=== PATIENT | male | born 1975 | race Two or more races ===

== ENCOUNTER 2020-12-26 11:06 | Emergency (ER) | payer SELFPAY ==
--- NOTE | 2020-12-26 10:27 | EDM.PDOC ---
ED HPI GENERAL MEDICAL PROBLEM - General Stated Complaint: IN BY AMBULANCE Time Seen by Provider: 12/26/20 10:45 Source of Information: Reports: Patient History Limitations: Reports: No Limitations - History of Present Illness INITIAL COMMENTS - FREE TEXT/NARRATIVE: This 45 yo male patient was brought to the ED by [facility] from the retirement due to chest pain that started today at 0945. The patient reports his pain is throughout his anterior chest, radiates to his right posterior shoulder and to his left anterior shoulder. The patient was given aspirin and Nitro x1 while in the retirement. The patient has a history of hypertension and asthma (no medications for "quite a while"). The patient reports his pain is down to a 4/10 at this time. 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 ED EXAM, GENERAL - Physical Exam Exam: See Below Exam Limited By: No Limitations General Appearance: Alert, WD/WN, Mild Distress, Obese Eye Exam: Bilateral Eye: EOMI, Normal Inspection, PERRL Ears: Normal External Exam, Normal Canal, Hearing Grossly Normal, Normal TMs Nose: Normal Inspection, Normal Mucosa, No Blood Throat/Mouth: Normal Inspection, Normal Lips, Normal Teeth, Normal Gums, Normal Oropharynx, Normal Voice, No Airway Compromise Head: Atraumatic, Normocephalic Neck: Normal Inspection, Supple, Non-Tender, Full Range of Motion Respiratory/Chest: No Respiratory Distress, Lungs Clear, Normal Breath Sounds, No Accessory Muscle Use, Chest Non-Tender Cardiovascular: Normal Peripheral Pulses, Regular Rate, Rhythm, No Edema, No Gallop, No JVD, No Murmur, No Rub GI/Abdominal: Normal Bowel Sounds, Soft, Non-Tender, No Organomegaly, No Distention, No Abnormal Bruit, No Mass (Male) Exam: Deferred Rectal (Males) Exam: Deferred Back Exam: Normal Inspection, Full Range of Motion, NT Extremities: Normal Inspection, Normal Range of Motion, Non-Tender, Normal Capillary Refill, No Pedal Edema Neurological: Alert, Oriented, CN II-XII Intact, Normal Cognition, Normal Gait, Normal Reflexes, No Motor/Sensory Deficits Psychiatric: Normal Affect, Normal Mood Skin Exam: Warm, Dry, Intact, Normal Color, No Rash Lymphatic: No Adenopathy #1 Interpretation EKG Date: 12/26/20 Time: 10:20 Rhythm: NSR Rate (Beats/Min): 85 [place]: Normal P-Wave: Present QRS: Normal ST-T: Normal QT: Normal Comparison: NA - No Prior EKG Course - Orders/Labs/Meds Orders: Active Orders 24 hr Category Date Time Status EKG Documentation Completion [RC] STAT Care 12/26/20 10:15 Active Chest 1V Frontal [CR] Urgent Exams 12/26/20 10:28 Ordered ACETAMINOPHEN [CHEM] Stat Lab 12/26/20 10:15 Ordered CBC WITH AUTO DIFF [HEME] Stat Lab 12/26/20 10:15 Ordered COMPREHENSIVE METABOLIC PN,CMP [CHEM] Stat Lab 12/26/20 10:15 Ordered COVID-19/FLU A+B [MOLEC] Urgent Lab 12/26/20 10:52 Ordered D-DIMER QUANTITATIVE [COAG] Stat Lab 12/26/20 10:15 Ordered DRUG SCREEN URINE BIORAD [URCHEM] Stat Lab 12/26/20 10:15 Ordered ETHANOL BLOOD MEDICAL [CHEM] Stat Lab 12/26/20 10:15 Ordered SALICYLATE [CHEM] Stat Lab 12/26/20 10:15 Ordered TROPONIN I [CHEM] Stat Lab 12/26/20 10:15 Ordered UA RFX KIANA AND CULT IF INDIC [URIN] Urgent Lab 12/26/20 10:15 Ordered Departure - Departure Time of Disposition: 11:18 Disposition: DC/Tfer to Acute Hospital 02 Reason for Transfer *Q: Other Condition: Serious Clinical Impression: Non-STEMI (non-ST elevated myocardial infarction) Chest pain Qualifiers: Chest pain type: unspecified Qualified Code(s): R07.9 - Chest pain, unspecified Forms: Interfacility Transfer EMTALA Care Plan Goals: Discussed the patient's history, examination, lab, EKG and x-ray results with Dr. Barakat. Dr. Barakat accepted the patient for continued evaluation and management as an inpatient at [facility] in [place]. The patient will be transported by [facility]. - My Orders Last 24 Hours: My Active Orders 12/26/20 10:15 EKG Documentation Completion [RC] STAT ACETAMINOPHEN [CHEM] Stat CBC WITH AUTO DIFF [HEME] Stat COMPREHENSIVE METABOLIC PN,CMP [CHEM] Stat D-DIMER QUANTITATIVE [COAG] Stat DRUG SCREEN URINE BIORAD [URCHEM] Stat ETHANOL BLOOD MEDICAL [CHEM] Stat SALICYLATE [CHEM] Stat TROPONIN I [CHEM] Stat UA RFX KIANA AND CULT IF INDIC [URIN] Urgent 12/26/20 10:28 Chest 1V Frontal [CR] Urgent 12/26/20 10:52 COVID-19/FLU A+B [MOLEC] Urgent - Assessment/Plan Last 24 Hours: My Active Orders 12/26/20 10:15 EKG Documentation Completion [RC] STAT ACETAMINOPHEN [CHEM] Stat CBC WITH AUTO DIFF [HEME] Stat COMPREHENSIVE METABOLIC PN,CMP [CHEM] Stat D-DIMER QUANTITATIVE [COAG] Stat DRUG SCREEN URINE BIORAD [URCHEM] Stat ETHANOL BLOOD MEDICAL [CHEM] Stat SALICYLATE [CHEM] Stat TROPONIN I [CHEM] Stat UA RFX KIANA AND CULT IF INDIC [URIN] Urgent 12/26/20 10:28 Chest 1V Frontal [CR] Urgent 12/26/20 10:52 COVID-19/FLU A+B [MOLEC] Urgent
[2020-12-26 10:54] LABS: ANION GAP 10.2 mEq/L (7-13); CHLORIDE,CL 104 mmol/L (98-107); SODIUM,NA 141 mmol/L (136-145)
[2020-12-26 10:55] LABS: ACETAMINOPHEN 0 ug/mL (10-30 (Therapeutic))
[~2020-12-26 11:06] MED LIST: Heparin Sodium 5,000 Units/ML Vial IVPUSH ONE; Heparin Sodium/0.45% NaCl 25,000 UNITS/500 ML BAG IV ONE; Morphine 2 MG/ML SYRINGE IVPUSH ONE
--- NOTE | 2020-12-26 11:11 | CR ---
EXAMINATION: Chest 1V Frontal SEX: Male AGE: 45 years CLINICAL HISTORY: 45-year-old male emergency department with chest pain. No previous CXR immediately available. Interpretation: Negative. 1. Normal cardiac silhouette (size and configuration). 2. No pulmonary vascular congestion, cephalization of flow, alveolar edema or dependent pleural effusion. 3. No lung mass, hilar lymphadenopathy or focal lobar infiltrate/atelectasis. 4. No peripheral "groundglass" interstitial densities. 5. No pneumothorax or pneumomediastinum. Midline tracheal airway unremarkable.
[2020-12-26 11:36] LABS: CORONAVIRUS COVID-19 NAA NEGATIVE (NEGATIVE)
== END 2020-12-26 12:03 ==
LOC: DL.ED 11:06
DX: I21.4 Non-ST elevation (NSTEMI) myocardial infarction (principal); Z79.899 Other long term (current) drug therapy
CPT/HCPCS: 0240U; 36415; 71045; 80053; 80143; 80179; 80307; 84484; 85025; 85379; 93005; 93010; 96365; 96375; 99285; 99285-25; J1644; J2270

== ENCOUNTER 2020-12-27 22:55 | Emergency (ER) | payer SELFPAY ==
[2020-12-28] MEDS ORDERED: Nitroglycerin 0.4 MG Tab.SL SL ONE
--- NOTE | 2020-12-28 00:09 | EDM.PDOC ---
ED HPI GENERAL MEDICAL PROBLEM - General Chief Complaint: Chest Pain Time Seen by Provider: 12/27/20 23:20 Source of Information: Reports: Patient, EMS History Limitations: Reports: No Limitations - History of Present Illness INITIAL COMMENTS - FREE TEXT/NARRATIVE: ED via [facility] with c/o chest pain, Patint BP elevated on readmission to [facility]. Reported transferred to [facility] yesterday with NSTMI, Patient stated angiogram showed some heart attack , not enough for any stent. No reports from [facility] available. BP meds increased but patient does not know what medication changes were. Just returned back to [facility] around 7 rates pain 4/10 points pain epigastric, mid chest radiating across shoulder to back of neck - Related Data Allergies Allergy/AdvReac Type Severity Reaction Status Date / Time No Known Allergies Allergy Verified 12/27/20 23:04 Home Meds: Home Meds Metoprolol Succinate [Toprol Xl] 75 mg PO BEDTIME 12/26/20 [History] hydroCHLOROthiazide [Hydrochlorothiazide] 25 mg PO DAILY 12/26/20 [History] atorvaSTATin [Lipitor] 40 mg PO BEDTIME 12/27/20 [History] Past Medical History Cardiovascular History: Reports: High Cholesterol, Hypertension, [place] Social & Family History - Family History Family Medical History: No Pertinent Family History - Tobacco Use Tobacco Use Status *Q: Former Tobacco User Used Tobacco, but Quit: Yes Month/Year Tobacco Last Used: 2020 - Caffeine Use Caffeine Use: Reports: None - Recreational Drug Use Recreational Drug Use: Yes Recreational Drug Type: Reports: Methamphetamine ED ROS GENERAL - Review of Systems Review Of Systems: Comprehensive ROS is negative, except as noted in HPI. ED EXAM, GENERAL - Physical Exam Exam: See Below Exam Limited By: No Limitations General Appearance: Alert, No Apparent Distress Eye Exam: Bilateral Eye: EOMI Ears: Normal External Exam Nose: Normal Inspection Throat/Mouth: Normal Inspection Head: Atraumatic, Normocephalic Neck: Normal Inspection Respiratory/Chest: No Respiratory Distress, Lungs Clear, Normal Breath Sounds Cardiovascular: Normal Peripheral Pulses, Regular Rate, Rhythm GI/Abdominal: Normal Bowel Sounds Back Exam: Full Range of Motion Extremities: Normal Inspection Neurological: Alert, Oriented Skin Exam: Warm, Dry, Intact #1 Interpretation EKG Date: 12/27/20 Time: 22:58 Rhythm: NSR Rate (Beats/Min): 84 [place]: Normal P-Wave: Present QRS: Normal ST-T: Normal QT: Normal Comparison: No Change EKG Interpretation Comments: Sinus, rare PVC Course - Vital Signs Last Recorded V/S: Last Vital Signs Temp 98.6 F 12/27/20 23:11 Pulse 90 12/27/20 23:11 Resp 17 12/27/20 23:11 BP 130/67 12/28/20 00:09 Pulse Ox 95 12/27/20 23:11 - Orders/Labs/Meds Labs: Laboratory Tests 12/27/20 12/27/20 Range/Units 23:45 23:45 WBC 9.3 (5.0-10.0) 10^3/uL RBC 5.25 (4.6-6.2) 10^6/uL Hgb 14.8 (14.0-18.0) g/dL Hct 43.3 (40.0-54.0) % MCV 82.5 (80-100) fL MCH 28.2 (27.0-34.0) pg MCHC 34.2 (33.0-35.0) g/dL Plt Count 300 (150-450) 10^3/uL Neut % (Auto) 63.9 (42.2-75.2) % Lymph % (Auto) 21.7 (20.5-50.1) % [place] % (Auto) 10.9 H (2-8) % Eos % (Auto) 3.0 (1.0-3.0) % Baso % (Auto) 0.5 (0.0-1.0) % Sodium 140 (136-145) mmol/L Potassium 3.8 (3.5-5.1) mmol/L Chloride 104 (98-107) mmol/L Carbon Dioxide 29 (21-32) mmol/L Anion Gap 10.8 (7-13) mEq/L BUN 13 (7-18) mg/dL Creatinine 1.02 (0.70-1.30) mg/dL Est Cr Clr Drug Dosing 98.43 mL/min Estimated GFR (MDRD) > 60 BUN/Creatinine Ratio 12.7 (No establ ref range) Glucose 196 H (70-99) mg/dL Calcium 8.4 L (8.5-10.1) mg/dL Total Bilirubin 0.2 (0.2-1.0) mg/dL AST 16 (15-37) U/L ALT 45 (16-63) U/L Alkaline Phosphatase 108 (46-116) U/L Troponin I 0.592 H* (0.000-0.056) ng/mL Total Protein 7.0 (6.4-8.2) g/dL Albumin 3.1 L (3.4-5.0) g/dL Globulin 3.9 Albumin/Globulin Ratio 0.79 Meds: Medications Discontinued Medications Generic Name Dose Route Start Last Admin Trade Name Migdalia PRN Reason Stop Dose Admin Nitroglycerin 0.4 mg 12/28/20 00:00 12/28/20 00:09 Nitroglycerin 0.4 Mg Tab.Sl SL 12/28/20 00:01 0.4 mg ONETIME ONE Administration - Re-Assessments/Exams Free Text/Narrative Re-Assessment/Exam: Patient in no distress, offers little information, reports pain improved but continues to rate at 4. . Clarification of results of angio. No significant COAD. EF 65%. Discharge medications received during TC William Lopez. BP improved from presentation. Monitor stable. TC dr Stephensno, Does not felel patient requiring further observation at present. Definitive cardiac study done, No remarkable findings from report. [facility] to [facility] with [facility]al officers. Departure - Departure Time of Disposition: 00:28 Disposition: DC/Tfer to Court of Law En 21 Reason for Transfer *Q: Other Condition: Good Clinical Impression: Nonspecific chest pain Hypertension Qualifiers: Hypertension type: essential hypertension Qualified Code(s): I10 - Essential (primary) hypertension Instructions: Hypertension, Adult, Nonspecific Chest Pain, Adult Referrals: PCP,None [Primary Care Provider] - Forms: ED Department Discharge Additional Instructions: Medications per William discharge instructions Lipitor 40mg daily Aspirin 81mg daily Clonidine 0.1mg twice daily Norvasc 10mg daily Metoprolol 25mg daily clinic recheck next week Verbal report angiogram No significant CAD, EF 65% Sepsis Event Note (ED) - Evaluation Sepsis Screening Result: No Definite Risk - Focused Exam Vital Signs: Vital Signs Temp Pulse Resp BP BP Pulse Ox 12/28/20 00:09 130/67 12/27/20 23:11 98.6 F 90 17 153/78 H 95
[2020-12-28 00:12] LABS: ANION GAP 10.8 mEq/L (7-13); CHLORIDE,CL 104 mmol/L (98-107); SODIUM,NA 140 mmol/L (136-145)
--- NOTE | 2020-12-28 00:20 | CR ---
PROCEDURE INFORMATION: Exam: XR Chest Exam date and time: 12/27/2020 11:48 PM Age: 45 years old Clinical indication: Pain; Left-sided; Additional info: Chest pain TECHNIQUE: Imaging protocol: XR of the chest. Views: 1 view. COMPARISON: CR Chest 1V Frontal 12/26/2020 11:03 AM FINDINGS: Lungs: Unremarkable. No consolidation. Pleural spaces: Unremarkable. No pleural effusion. No pneumothorax. Heart/Mediastinum: Unremarkable. No cardiomegaly. Bones/joints: Unremarkable. IMPRESSION: No acute findings.
== END 2020-12-28 00:41 ==
LOC: DL.ED 22:55
DX: R07.9 Chest pain, unspecified (principal); I10 Essential (primary) hypertension; E78.00 Pure hypercholesterolemia, unspecified; I25.2 Old myocardial infarction; Z79.899 Other long term (current) drug therapy; Z95.5 Presence of coronary angioplasty implant and graft
CPT/HCPCS: 36415; 71045; 80053; 84484; 85025; 93005; 93010; 99284; 99285-25; A9270-GY

== ENCOUNTER 2021-01-15 22:55 | Emergency (ER) | payer SELFPAY ==
--- NOTE | 2021-01-15 23:33 | EDM.PDOC ---
ED HPI GENERAL MEDICAL PROBLEM - General Chief Complaint: Chest Pain Stated Complaint: MED CLEAR Time Seen by Provider: 01/15/21 23:30 Source of Information: Reports: Patient, Provider (Ivelisse Lieberman NP), RN, RN Notes Reviewed History Limitations: Reports: No Limitations - History of Present Illness INITIAL COMMENTS - FREE TEXT/NARRATIVE: Augustine is a 45 y/o male with a history of NSTEMI and HTN who presents to the ED via [facility], as he is currently incarcerated, with complaints of chest pain that is intractable to Nitroglycerin. The patient reports the chest pain woke him from sleep at 2000 this evening. He characterizes the pain as a sharp stab to his midsternal region that radiates down his left arm and into his left neck. He has taken three doses of Nitroglycerin which did reduce the pain, but did not completely alleviate it. Additionally, he reports general malaise, blurry vision, headache, transient cough, transient shortness of breath, and mild nausea. He denies sinus congestion, sore throat, palpitations, vomiting, abdominal pain, dysuria, hematuria, melena, or hematochezia. The patient reports he has been taking his HTN and HLDA medications as prescribed. He reports he used to be a pack-a-day cigarette smoker but has not smoked frequently since he was incarcerated nine months ago. He denies alcohol or recreational drug use. The patient was evaluated at this facility on 12/26/20 for similar symptoms, EKG normal and troponin elevated at 0.09. He was sent to [facility] in [place] where no prominent CAD was identified and EF was 65% via ECHO, no stenting performed. Chest Pain Score (Numeric/FACES): 4 - Related Data Allergies Allergy/AdvReac Type Severity Reaction Status Date / Time No Known Allergies Allergy Verified 12/27/20 23:04 Home Meds: Home Meds Metoprolol Succinate [Toprol Xl] 75 mg PO BEDTIME 12/26/20 [History] hydroCHLOROthiazide [Hydrochlorothiazide] 25 mg PO DAILY 12/26/20 [History] atorvaSTATin [Lipitor] 40 mg PO BEDTIME 12/27/20 [History] Nitroglycerin 1 tab PO ASDIRECTED PRN 01/15/21 [History] Past Medical History Cardiovascular History: Reports: High Cholesterol, Hypertension Social & Family History - Family History Family Medical History: No Pertinent Family History - Caffeine Use Caffeine Use: Reports: None ED ROS GENERAL - Review of Systems Review Of Systems: Comprehensive ROS is negative, except as noted in HPI. ED EXAM, GENERAL - Physical Exam Exam: See Below Exam Limited By: No Limitations General Appearance: Alert, No Apparent Distress Eye Exam: Bilateral Eye: EOMI, Normal Inspection, PERRL (3mm) Ears: Normal External Exam, Normal Canal, Hearing Grossly Normal Ear Exam: Bilateral Ear: Auricle Normal, Canal Normal Nose: Normal Inspection, Normal Mucosa Throat/Mouth: Normal Inspection, Normal Oropharynx, Normal Voice, No Airway Compromise Head: Normocephalic Neck: Normal Inspection, Supple, Non-Tender, Full Range of Motion. No: Lymphadenopathy (L), Lymphadenopathy (R) Respiratory/Chest: No Respiratory Distress, Lungs Clear, Normal Breath Sounds, No Accessory Muscle Use. No: Chest Non-Tender, Crackles, Rales, Rhonchi, Wheezing, Stridor Cardiovascular: Normal Peripheral Pulses, Regular Rate, Rhythm, No Gallop, No JVD, No Murmur, No Rub. No: No Edema Peripheral Pulses: 2+: Radial (L), Radial (R) GI/Abdominal: Normal Bowel Sounds, Soft, Non-Tender, No Distention, No Abnormal Bruit, No Mass, Pelvis Stable (Male) Exam: Deferred Rectal (Males) Exam: Deferred Back Exam: Normal Inspection, Full Range of Motion Extremities: Normal Range of Motion, Non-Tender, Normal Capillary Refill, Pedal Edema (+1 pitting, bilaterally) Neurological: Alert, Oriented, CN II-XII Intact, Normal Cognition, Normal Gait, No Motor/Sensory Deficits Psychiatric: Normal Affect, Normal Mood Skin Exam: Warm, Dry, Intact, Normal Color, No Rash. No: Ecchymosis, Erythema, Jaundice, Mottled, Pallor, Petechiae #1 Interpretation EKG Date: 01/15/21 Time: 23:18 Rhythm: NSR Rate (Beats/Min): 67 [place]: Normal P-Wave: Present QRS: Normal ST-T: Normal QT: Normal IN/PQ Interval: 0.194 Comparison: No Change EKG Interpretation Comments: NSR; q-wave in III; No evidence of acute myocardial ischemia Course - Vital Signs Last Recorded V/S: Last Vital Signs Temp 97.4 F 01/15/21 23:18 Pulse 71 01/15/21 23:18 Resp 16 01/15/21 23:18 BP 140/89 01/15/21 23:18 Pulse Ox 97 01/15/21 23:18 - Orders/Labs/Meds Labs: Laboratory Tests 01/15/21 01/15/21 01/15/21 Range/Units 23:21 23:21 23:21 WBC 10.3 H (5.0-10.0) 10^3/uL RBC 5.27 (4.6-6.2) 10^6/uL Hgb 15.2 (14.0-18.0) g/dL Hct 43.5 (40.0-54.0) % MCV 82.5 (80-100) fL MCH 28.8 (27.0-34.0) pg MCHC 34.9 (33.0-35.0) g/dL Plt Count 343 (150-450) 10^3/uL Neut % (Auto) 64.2 (42.2-75.2) % Lymph % (Auto) 22.4 (20.5-50.1) % [place] % (Auto) 10.0 H (2-8) % Eos % (Auto) 2.6 (1.0-3.0) % Baso % (Auto) 0.8 (0.0-1.0) % Sodium 140 (136-145) mmol/L Potassium 3.8 (3.5-5.1) mmol/L Chloride 104 (98-107) mmol/L Carbon Dioxide 31 (21-32) mmol/L Anion Gap 8.8 (7-13) mEq/L BUN 12 (7-18) mg/dL Creatinine 1.08 (0.70-1.30) mg/dL Est Cr Clr Drug Dosing 90.12 mL/min Estimated GFR (MDRD) > 60 BUN/Creatinine Ratio 11.1 (No establ ref range) Glucose 77 (70-99) mg/dL Lactic Acid 0.8 (0.4-2.0) mmol/L Calcium 8.7 (8.5-10.1) mg/dL Total Bilirubin 0.3 (0.2-1.0) mg/dL AST 20 (15-37) U/L ALT 59 (16-63) U/L Alkaline Phosphatase 139 H (46-116) U/L Troponin I High Sens 208 H* (<=76) pg/mL C-Reactive Protein 1.2 H (0.0-0.9) mg/dL B-Natriuretic Peptide 20 (0-100) pg/ml Total Protein 7.6 (6.4-8.2) g/dL Albumin 3.3 L (3.4-5.0) g/dL Globulin 4.3 Albumin/Globulin Ratio 0.77 Ethyl Alcohol < 3 (0) mg/dL Meds: Medications Discontinued Medications Generic Name Dose Route Start Last Admin Trade Name Freq PRN Reason Stop Dose Admin Al Hydroxide/Mg Hydroxide 30 ml 01/16/21 00:07 01/16/21 00:45 Gi Cocktail Oral Solution 30 Ml PO 01/16/21 00:08 Not Given ONETIME ONE Aspirin 324 mg 01/16/21 00:35 01/16/21 00:45 Aspirin 81 Mg Tab.Chew PO 01/16/21 00:36 324 mg ONETIME ONE Administration - Radiology Interpretation Free Text/Narrative:: [facility] Final Radiology Report Call: [phone] assistance Online chat: [email or web address] Name: AUGUSTINE LEON Age: 45Years M Date: 01/15/2021 SSN: -- : [id number] Study: CR CHEST 1V FRONTAL Requesting Physician: Hafsa Yin Images: 1 Addl Studies: Provided Clinical History: Chest pain Contrast: Contrast Medium: Contrast Amount: Contrast Method: CONFIDENTIALITY STATEMENT This report is intended only for use by the referring physician, and only in accordance with law. If you received this in error, call [phone]. Page 1 of 1 PROCEDURE INFORMATION: Exam: XR Chest Exam date and time: 01/15/2021 11:25 PM Age: 45 years old Clinical indication: Pain; Left-sided; Additional info: Chest pain TECHNIQUE: Imaging protocol: XR of the chest. Views: 1 view. COMPARISON: CR Chest 1V Frontal 12/27/2020 11:48 PM FINDINGS: Lungs: Unremarkable. No consolidation. Pleural spaces: Unremarkable. No pleural effusion. No pneumothorax. Heart/Mediastinum: Unremarkable. No cardiomegaly. Bones/joints: Unremarkable. IMPRESSION: No acute findings. Thank you for allowing us to participate in the care of your patient. Dictated and Authenticated by: Jasper Hayward MD 01/16/2021 12:05 AM Central Time ([place] & [place]) - Re-Assessments/Exams Free Text/Narrative Re-Assessment/Exam: 01/16/21 EKG reveals NSR with no evidence of acute myocardial ischemia. CXR unrema rkable. CBC unremarkable for acute processes, no evidence of infection or anemia. Liver function, kidney function, and electrolytes appropriate via CMP. Troponin elevated at 208. CRP mildly elevated at 1.[address] Lopez, hospitalist at [facility] in [place], who kindly agreed to accept patient for transfer. Dr. Barakat is requesting to hold heparin gtt at this time but would like chewable ASA administered. Findings of examination, lab work, and imaging reviewed with patient. Discussed need for transfer given persistent chest pain and Troponin elevation. Patient verbalized understanding and agreement with the plan of care. 01/16/21 03:41 Departure - Departure Time of Disposition: 01:02 Disposition: DC/Tfer to [facility] 02 Reason for Transfer *Q: Primary PCI Indicated Condition: Good Clinical Impression: Non-STEMI (non-ST elevated myocardial infarction) Chest pain Qualifiers: Chest pain type: unspecified Qualified Code(s): R07.9 - Chest pain, unspecified Referrals: PCP,None [Primary Care Provider] - Forms: ED Department Discharge, Interfacility Transfer [facility] Sepsis Event Note (ED) - Focused Exam Vital Signs: Vital Signs Temp Pulse Resp BP Pulse Ox 01/15/21 23:18 97.4 F 71 16 140/89 97
--- NOTE | 2021-01-16 00:05 | CR ---
PROCEDURE INFORMATION: Exam: XR Chest Exam date and time: 01/15/2021 11:25 PM Age: 45 years old Clinical indication: Pain; Left-sided; Additional info: Chest pain TECHNIQUE: Imaging protocol: XR of the chest. Views: 1 view. COMPARISON: CR Chest 1V Frontal 12/27/2020 11:48 PM FINDINGS: Lungs: Unremarkable. No consolidation. Pleural spaces: Unremarkable. No pleural effusion. No pneumothorax. Heart/Mediastinum: Unremarkable. No cardiomegaly. Bones/joints: Unremarkable. IMPRESSION: No acute findings.
[2021-01-16] MEDS ORDERED: GI Cocktail Oral Solution 30 ML PO ONE (00:07)
[2021-01-16 00:12] LABS: ANION GAP 8.8 mEq/L (7-13); CHLORIDE,CL 104 mmol/L (98-107); SODIUM,NA 140 mmol/L (136-145)
[2021-01-16] MEDS ORDERED: Aspirin 81 MG Tab.Chew PO ONE (00:35)
== END 2021-01-16 01:02 ==
LOC: DL.ED 22:55
DX: I21.4 Non-ST elevation (NSTEMI) myocardial infarction (principal); E78.00 Pure hypercholesterolemia, unspecified; I10 Essential (primary) hypertension; Z79.899 Other long term (current) drug therapy
CPT/HCPCS: 36415; 71045; 80053; 80307; 83605; 83880; 84484; 85025; 86140; 93005; 93010; 99284; 99285-25; A9270-GY